=== PATIENT | female | born 1995 | race Caucasian/White ===

== ENCOUNTER 2019-01-11 22:47 | Inpatient (IN) | payer BC, MEDICAID, OTHER ==
[~2019-01-11] VITALS: Ht 162.6 cm; Wt 68.0 kg
[2019-01-11] MEDS ORDERED: ESCI10TA2 PO (23:52)
[2019-01-12 00:27] LABS: HEMATOCRIT 41.9 % (36.0-47.0); MEAN CORPUSCULAR HEMOGLOBIN 30.1 pg (27.0-33.0); MEAN CORPUSCULAR HGB CONC 33.4 g/dl (32.0-36.5); MEAN CORPUSCULAR VOLUME 90.1 fl (80.0-96.0); PLATELET COUNT, AUTOMATED 263 10^3/uL (150-450); RED BLOOD COUNT 4.65 10^6/uL (4.00-5.40)
[2019-01-12 00:34] LABS: HCG, SERUM QUALITATIVE NEGATIVE (NEGATIVE)
[2019-01-12 00:45] LABS: AMPHETAMINES LEVEL URINE NEGATIVE (NEGATIVE); BARBITURATES URINE NEGATIVE (NEGATIVE); BENZODIAZEPINES URINE NEGATIVE (NEGATIVE); CANNABINOIDS URINE NEGATIVE (NEGATIVE); COCAINE METABOLITE URINE NEGATIVE (NEGATIVE); METHADONE URINE NEGATIVE (NEGATIVE); OPIATES URINE NEGATIVE (NEGATIVE); PHENCYCLIDINE URINE NEGATIVE (NEGATIVE)
[2019-01-12 00:52] LABS: ACETAMINOPHEN LEVEL < 2.0 UG/ML (10.0-30.0); ALBUMIN 4.2 GM/DL (3.2-5.2); ALT/SGPT 17 U/L (12-78); BILIRUBIN,DIRECT 0.1 MG/DL (0.0-0.2); BILIRUBIN,TOTAL 0.5 MG/DL (0.2-1.0); BLOOD UREA NITROGEN 8 MG/DL (7-18); CARBON DIOXIDE LEVEL 26 MEQ/L (21-32); CHLORIDE LEVEL 109 MEQ/L (98-107); CREATININE FOR GFR 0.74 MG/DL (0.55-1.30); ETHYL ALCOHOL (ETHANOL) < 0.003 % (0.000-0.010); GLOMERULAR FILTRATION RATE > 60.0 (>60); GLUCOSE, FASTING 89 MG/DL (70-100); POTASSIUM SERUM 3.8 MEQ/L (3.5-5.1); SALICYLATE LEVEL 2.5 MG/DL (5.0-30.0); SODIUM LEVEL 143 MEQ/L (136-145); TOTAL PROTEIN 7.8 GM/DL (6.4-8.2)
[2019-01-12] MEDS ORDERED: MAALOX 30 ML SUSP *UDC PO PRN (03:00)
[2019-01-12] MEDS ORDERED: MOM 30ML SUSPENSION UDC PO PRN (03:00)
[2019-01-12] MEDS ORDERED: LORazepam 1 MG TAB PO PRN (03:00)
[2019-01-12] MEDS ORDERED: NICOTINE 21MG/24HR 1 EA TRANSDERMAL TD PRN (03:00)
[2019-01-12] MEDS ORDERED: traZODone 50 MG TAB PO PRN (03:00)
[2019-01-12] MEDS ORDERED: ACETAMINOPHEN TAB 650MG DOSE (2X325MG) PO PRN (03:00)
[2019-01-12 06:07] VITALS: BP 109/55
[2019-01-12 07:11] VITALS: BP 131/76
[2019-01-12] MEDS ORDERED: CitaloPRAM (CeleXA) 10 MG TABLET PO SCH (09:00)
[2019-01-12 12:00] VITALS: BP 120/70
[2019-01-12 18:00] VITALS: BP 124/73
[2019-01-13 06:34] VITALS: BP 105/54
[2019-01-13] MEDS ORDERED: CitaloPRAM (CeleXA) 10 MG TABLET PO SCH (09:00)
[2019-01-13] MEDS ORDERED: INFLUENZA QUADRIVALENT PF VACCINE 0.5ML SYRINGE (90686) IM ONE (09:00)
[2019-01-13] MEDS ORDERED: PILL CRUSHER/CUTTER 1 EACH XX PRN (09:30)
[2019-01-13] MEDS: ESCITALOPRAM OXALATE 5MG TABLET (LEXAPRO) PO SCH (09:39)
[2019-01-13 13:00] VITALS: BP 110/62
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
[2019-01-13 18:00] VITALS: BP 105/56
[2019-01-13 21:00] VITALS: BP 112/60
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
[2019-01-14 06:36] VITALS: BP 108/57
[2019-01-14] MEDS: ESCITALOPRAM OXALATE 5MG TABLET (LEXAPRO) PO SCH (09:25)
--- NOTE | 2019-01-14 09:29 | MHIPN ---
DATE: 01/13/2019 CHIEF COMPLAINT: Feels depressed. SUBJECTIVE: Is seen for followup in the presence of staff. Says has felt relatively better, that she had a fair amount of sleep. Says has been in touch with her family on the phone and felt better. Appetite is fair. MENTAL STATUS EXAMINATION: She is neat. Less guarded. She is cooperative. There is no agitation. No psychomotor retardation. Affect is restricted in range. She denies any suicidal thoughts or intents, but is somewhat vague on plans. No homicidal ideas or intents. No evidence of psychosis. Cognition is grossly intact. Judgment and insight remain compromised. ASSESSMENT: 1. Other specified depressive disorder. PLAN: Continue current observations. Obtain collateral information. Lexapro has been increased to 15 mg daily. She declined the Celexa, which had been inadvertently prescribed yesterday, as she has been using Lexapro at a lower dose of 10 mg daily. I would suggest that she is involved in activities in the unit. She will be seeing the assigned psychiatrist tomorrow, as well as the rest of the treatment team, when further recommendations will be made. VITAL SIGNS: Blood pressure 105/54, pulse 52, temperature 98.5.
--- NOTE | 2019-01-14 10:33 | ECGEPIP ---
Stationary ECG Study [facility] Test Date: 2019-01-13 Pat Name: YULISSA CAMPOS Department: Room: [place] [address] Gender: F Sales Marketing Coordinator: AVELINA : 1995 Requested By: Clarisa Ha [facility] Order Number: [id number] Reading MD: Yonny Wood Measurements Intervals [place] Rate: 55 P: 55 NE: 114 QRS: 53 QRSD: 95 T: 35 QT: 436 QTc: 421 Interpretive Statements SINUS BRADYCARDIA WITH SHORT NE INTERVAL Comparison tracing not on file Electronically Signed On 01-14-2019 10:33:36 EDT by Yonny Wood
--- NOTE | 2019-01-14 17:30 | MHIPNPDOC ---
[facility] Progress Note Progress Note DATE OF SERVICE: 01/14/19 HISTORY: As per ED result: "Pt states "my depression kicked in tonight and I was having suicidal thoughts", pt admits she cut self with kitchen knife and then called her friend "to tell her what I did". Pt states she then left the residence "to drive around and clear my head". Pt admits to hx of depression, was placed on medications last July, denies prior psych admissions but admits to prior attempt at self harm by cutting "when I was in high school". Pt denies HI/AH/VH, denies any recent substance abuse. Pt is guarded, denies any specific stressors, states "I don't know" when asked why she thinks she is depressed. Pt lives with her daughter who is currently with pt.'s mother, pt adds that she has friends who are supportive but admits she estranged from family." VITAL SIGNS: See below. NEW TEST RESULTS: See below CURRENT MEDICATIONS: See below. MENTAL STATUS EXAMINATION: Patient is a 23 year old female, who is alert, cooperative, dressed in hospital clothes with good hygiene/grooming. Speech: Is normal in rate, tone and volume. Language skills are normal. Thought processes including: linear, logical. Thought content: goal orientated, she wants to go home, she misses her 2 year old daughter. she wants to go back to school in the summer. Abstract reasoning, and computation: good. Description of associations: good. Description of abnormal or psychotic thoughts: denies SI, denies HI, denies AV hallucinations, denies thought delusions Judgment: improving. Insight: improving. Orientation: x 3. Recent and remote memory: Intact. Attention span and concentration: good. Language: normal. Fund of knowledge: average. Mood: anxious. Affect: congruent with mood, appropriate. DIAGNOSES: 1. Other specified depressive disorder. ASSESSMENT: Patient is very pleasant and cooperative. she says she feels safe in here and has not had suicidal thoughts today. she says she wants to go home bcause she has a 2 year old daughter and she needs to take care of her, that at this time her mother is taking care of the child. She would like to know in advance when she would be discharged because she would need to make arrangements with her mother, for her to come to pick her up. The patient looks stable at this point, she smiles at times, she says she can handle her life, she feels the medications are working. She is not suicidal, not homicidal and not psychotic at this time. MANAGEMENT PLAN: Continue with the same treatment plan and consider discharge in 24-48 hours if she continues to present stable TIME SPENT: 15 minutes. Vital Signs Vital Signs Date Time Temp Pulse Resp B/P (MAP) Pulse Ox O2 Delivery O2 Flow Rate FiO2 01/14/19 06:36 97.5 75 14 108/57 (74) 01/13/19 10:06 Room Air 01/12/19 06:07 99 Current Medications Current Medications Acetaminophen (Tylenol Tab) 650 mg Q6HP PRN PO HEADACHE or DISCOMFORT Last administered on 01/13/19at 19:42; Start 01/12/19 at 03:00 Al Hydrox/Mg Hydrox/Simethicone (Mylanta) 30 ml Q4HP PRN PO HEARTBU RN/INDIGESTION; Start 01/12/19 at 03:00 Citalopram Hydrobromide (CeleXA) 10 mg DAILY PO ; Start 01/12/19 at 09:00; Stop 01/13/19 at 09:13; Status DC Citalopram Hydrobromide (CeleXA) 15 mg DAILY PO ; Start 01/13/19 at 09:00; Stop 01/13/19 at 09:32; Status DC Escitalopram Oxalate (Lexapro) 15 mg DAILY PO Last administered on 01/14/19at 09:25; Start 01/13/19 at 09:00 Home Med (Med Rec Complete!) ASDIRECTED XX ; Start 01/12/19 at 02:45; Stop 01/12/19 at 02:45; Status DC Lorazepam (Ativan) 1 mg Q4HP PRN PO ANXIETY/AGITATION; Start 01/12/19 at 03:00 Magnesium Hydroxide (Milk Of Magnesia) 30 ml DAILYPRN PRN PO CONSTIPATION; Start 01/12/19 at 03:00 Nicotine (Nicoderm Cq 21mg) 1 patch DAILY PRN TD Cravings; Start 01/12/19 at 03:00 Trazodone HCl (Desyrel) 50 mg QHSP PRN PO INSOMNIA; Start 01/12/19 at 03:00 Allergies Coded Allergies: tramadol (Verified Allergy, Unknown, VOMITING, 01/11/19) OLGA MAYO MD Jan 14, 2019 17:24
[2019-01-14 18:09] VITALS: BP 122/68
[2019-01-15 06:30] VITALS: BP 108/64
[2019-01-15] MEDS: ESCITALOPRAM OXALATE 5MG TABLET (LEXAPRO) PO SCH (08:40)
[2019-01-15] MEDS ORDERED: NICO4GUM43 MT (10:41)
[2019-01-15] MEDS ORDERED: LEXA5TAB13 PO (10:41)
[2019-01-15] MEDS ORDERED: LEXA1TAB2 PO (11:28)
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
== END 2019-01-15 13:00 | disposition home or self-care (01) | DRG 753 ==
LOC: M ED 22:47 → M ED INP 01-12 02:54 → M PSY 01-12 05:06
PROVIDERS: ADMIT Psychiatry & Neurology Psychiatry; ATTEND Psychiatry & Neurology Psychiatry
DX: F32.89 Other specified depressive episodes (principal); F60.89 Other specific personality disorders; F17.210 Nicotine dependence, cigarettes, uncomplicated; M54.9 Dorsalgia, unspecified; Z63.4 Disappearance and death of family member; Z79.899 Other long term (current) drug therapy; Z91.5 Personal history of self-harm